=== PATIENT | male | born 1970 | race Caucasian/White ===

== ENCOUNTER 2021-03-19 12:32 | Outpatient (CLI) | payer MEDICARE, SELFPAY ==
--- NOTE | ~2021-03-19 | US_ITS ---
EXAMINATION: US venous doppler [facility] DATE: 03/19/2021 13:29 INDICATION: Lower limb pain. TECHNIQUE: Grayscale ultrasound images without and with compression and Doppler ultrasound images of the bilateral lower extremity veins were obtained. COMPARISON: None. FINDINGS: The visualized portions of right common femoral vein, profunda (deep) femoral vein, femoral vein, pop liteal vein, and greater saphenous vein outflow are patent. The calf veins are not well visualized. The visualized portions of left common femoral vein, profunda femoral vein, femoral vein, popliteal v ein, and greater saphenous vein outflow are patent. The calf veins are not well visualized. IMPRESSION: 1. No deep venous thrombosis. Reviewed, dictated and finalized at location A. OGRAPH I ENGRAVER
== END 2021-03-19 12:33 | disposition home or self-care (01) ==
PROVIDERS: PCP Emergency Medicine; Visit Provider Emergency Medicine
DX: M54.14 Radiculopathy, thoracic region (principal); M79.662 Pain in left lower leg
CPT/HCPCS: 93970

== ENCOUNTER 2021-04-02 08:29 | Outpatient (CLI) | payer MEDICARE, SELFPAY ==
--- NOTE | 2021-04-02 | ECHO_ITS ---
Patient Info Name: Kuldip Harkins Age: 50 years : 1970 Gender: Male Ht: 76 in Wt: 389 lbs BSA: 3.16 m2 HR: 92 bpm Technical Quality: Poor Exam Date: 04/02/2021 9:00 AM Exam Location: [facility] Pulmonary Patient Status: Outpatient Admit Date: 04/02/2021 Staff Ordering Physician: Bull Granados MD Sustainability Coordinator: Shanelle Aburto RDCS Attending Provider: Bull Granados MD Referring Physician: Darwin POPE; Exam Type: CA echo doppler color flow Study Info Indications R06.00 - Dyspnea, unspecified Complete two-dimensional, color flow and Doppler transthoracic echocardiogram is performed. Reason for Poor Study: patient body habitus Summary 1. Complete two-dimensional, color flow and Doppler transthoracic echocardiogram is performed. 2. Poor echocardiographic windows, cardiac chambers and valves are not well visualized. LV size appears to be normal, with normal global LV systolic function, ejection fraction about 60-70%. Grade 1 diastolic dysfunction. Valves are not well visualized. RVSP 24 mmHg. Consider contrast echo. Left Ventricle Left ventricular systolic function is normal, estimated at 65-70%. The left ventricular diastolic function is grade I diastolic dysfunction. Right Ventricle Right ventricular chamber dimension is normal. Right ventricular systolic function is normal. Left Atria Left atrial chamber dimension is normal. Right Atria Right atrial chamber dimension is normal. Aortic Valve The aortic valve is not well visualized. There is no aortic valve stenosis. Tricuspid Valve The tricuspid valve leaflets are not well visualized. Pericardium/Pleural The pericardium appears normal. Aorta The aortic root size at the sinus of Valsalva is normal. Left Ventricular Outflow Tract Name Value Normal LVOT 2D LVOT Diameter 2.2 cm LVOT Doppler LVOT Peak Gradient 6 mmHg LVOT Mean Gradient 3 mmHg LVOT VTI 23 cm LVOT VTI/AV VTI Ratio 1.0 LVOT Stroke Volume 89 ml LVOT CO 7.3 l/min LVOT CI 2.3 l/min/m2 Pulmonic Valve Name Value Normal RVOT Doppler RVOT Peak Gradient 2 mmHg PV Doppler PV Peak Gradient 3 mmHg Mitral Valve Name Value Normal MV Doppler MV Decel Hardin 431 cm/s2 MV PHT 41 ms MV Area (PHT)
== END 2021-04-02 08:30 | disposition home or self-care (01) ==
PROVIDERS: PCP Emergency Medicine; Visit Provider Emergency Medicine
DX: R06.00 Dyspnea, unspecified (principal)
CPT/HCPCS: 93306

== ENCOUNTER 2021-04-03 07:39 | Outpatient (CLI) | payer MEDICARE, SELFPAY ==
--- NOTE | ~2021-04-03 | MR_ITS ---
EXAMINATION: MR lumbar spine wo [facility] EXAM DATE: 04/03/2021 08:57 INDICATION: Lumbar pain. TECHNIQUE: Multi-sequential, multiplanar MR images of the lumbar spine were obtained without contrast . Sagittal T1, T2, T2 fat saturation images. Axial T2 weighted images. Comparison is made to prior examination from 04/25/2017. FINDINGS: There is 3 mm retrolisthesis L5 on S1 with moderate disc disease, mild at the other thoraco lumbar levels. Mild diffuse chronic loss of vertebral body heights. The conus medullaris terminates a t the L1/2 level and has normal signal intensity and morphology. There are no suspicious marrow signa l abnormalities. Paraspinal soft tissue is unremarkable. Level by level evaluation: T12-L1: Disc does not extend beyond the endplate margin. Facet arthropathy: Mild. Neural foraminal stenosis: No stenosis. Central canal stenosis: No stenosis. L1-L2: There is a mild diffuse disc bulge. Facet arthropathy: Mild. Neural foraminal stenosis: Mild left. Central canal stenosis: Minimal. L2-L3: There is a mild diffuse disc bulge. Facet arthropathy: Mild. Neural foraminal stenosis: Mild bilateral. Central canal stenosis: Minimal. L3-L4: There is a mild to moderate diffuse disc bulge. Facet arthropathy: Mild to moderate. Neural foraminal stenosis: Mild to moderate bilateral. Central canal stenosis: Mild. L4-L5: There is a moderate diffuse disc bulge. Facet arthropathy: Moderate. Neural foraminal stenosis: Moderate bilateral, right greater than left. Central canal stenosis: Mild to moderate. L5-S1: There is a moderate diffuse disc bulge. Facet arthropathy: Moderate. Neural foraminal stenosis: Moderate to severe bilateral. Central canal stenosis: Mild to moderate. Mild progression spondylosis compared to 2018. Amount of neural foraminal stenosis at L4-5 and L5-S1 does not appear significantly changed compared to that study. IMPRESSION: Lower lumbar predominant spondylosis. Reviewed, dictated and finalized at location B. TAMALE MAN
--- NOTE | ~2021-04-03 | XR_ITS ---
XR chest 2V DATE: 04/03/2021 08:07 INDICATION: Dyspnea TECHNIQUE: PA and lateral views COMPARISON: 06/07/2018 CT chest abdomen pelvis 01/18/2017 chest FINDINGS: Normal heart size. No hilar or mediastinal enlargement. No pulmonary infiltrate or consolidation, pleural effusion or pulmonary vascular congestion or pneumo thorax is detected. Included skeletal structures are unremarkable. IMPRESSION: No active cardiopulmonary disease Reviewed, dictated and finalized at location A. H CATCHER
== END 2021-04-03 07:40 | disposition home or self-care (01) ==
PROVIDERS: PCP Emergency Medicine; Visit Provider Physical Medicine & Rehabilitation
DX: R06.00 Dyspnea, unspecified (principal); M79.662 Pain in left lower leg; M47.815 Spondylosis without myelopathy or radiculopathy, thoracolumbar region; M48.05 Spinal stenosis, thoracolumbar region; M47.817 Spondylosis without myelopathy or radiculopathy, lumbosacral region; M48.07 Spinal stenosis, lumbosacral region
CPT/HCPCS: 71046; 72148

== ENCOUNTER 2022-08-26 11:37 | Outpatient (CLI) | payer MEDICARE, SELFPAY ==
--- NOTE | ~2022-08-26 | NM_ITS ---
EXAMINATION: NM hepatobiliary wo pharm DATE: 08/26/2022 14:03 INDICATION: Calculus of gallbladder without cholecystitis. COMPARISON: CT 06/07/2018 TECHNIQUE: 4.9 mCi Tc-99m mebrofenin (Choletec) was administered intravenously. Scintigraphic images of the abdomen were obtained for one hour. Then, the patient drank 8 oz Ensure, and imaging was cont inued for 60 minutes. FINDINGS: There is normal clearance of radiotracer from the blood pool. There is homogeneous tracer u ptake by the liver. Activity progresses to the bowel and gallbladder. Gallbladder ejection fraction (GBEF) was 7%. Note that with this technique, normal GBEF >= 33%. IMPRESSION: 1. Low gallbladder ejection fraction, consistent with gallbladder dysfunction and/or chronic cholecy stitis. Reviewed, dictated and finalized at location A. IMPRESSION: 1. Low gallbladder ejection fraction, consistent with gallbladder dysfunction and/or chronic cholecystitis.
== END 2022-08-26 11:38 | disposition home or self-care (01) ==
PROVIDERS: PCP Emergency Medicine; Visit Provider Emergency Medicine
DX: K80.20 Calculus of gallbladder without cholecystitis without obstruction (principal)
CPT/HCPCS: 78226; A9537

== ENCOUNTER 2022-09-17 06:20 | Day surgery (SDC) | payer MEDICARE, SELFPAY ==
[2022-09-15 08:27] VITALS: BMI 48.6
--- NOTE | 2022-09-15 08:34 | PC.NURSE ---
Report to the Outpatient Waiting Room, entrance under the green pavilion located off [facility], at time 9:00 on date 09/17/22. Planned Procedure Time: 11:00. Time changes happen often and if your time is changed the preop area will call you the afternoon before. - You and your visitor will be asked to self-screen and do not enter if you have any COVID symptoms. - A mask is optional within the hospital at this time. Patients may have clear liquids (water, carbonated beverages, clear teas, apple juice) until 3 hours prior to surgery (8:00) with a maximum of 20 ounces. - No food from midnight until time of surgery Take the following medications with a SIP of water the morning of surgery: NONE DO NOT STOP ANY OF YOUR OTHER PRESCRIPTION MEDICATIONS PRIOR TO SURGERY ?EXCEPT THE FOLLOWING Medications to discontinue per physician: N/A Date to take last dose: N/A Please no make-up, nail uzbek, hairspray, perfume, deodorant, or body powder the day of surgery. No jewelry (including any body piercings) or valuables the day of surgery, leave them at home. Please take a shower or bath the night before, or the morning of, surgery with an antibacterial soap (HIBICLENS). Wear comfortable, loose fitting clothing. - Jewelry must be removed prior to entering the operating room. Rings and piercings that are not removed may be cut off. - The hospital will not accept responsibility for valuables. - Please leave all valuables, including medications, at home the day of surgery. If you are going home after surgery, a licensed stud driver must drive you home. - NO public transportation without another adult if you receive anesthesia. - We recommend that an adult stay with you for 24 hours following discharge. - We also recommend that you do not drive, make important decision, drink alcoholic beverages, or take any drugs that were not prescribed by your health care provider for at least 24 hours after your discharge time. Follow any additional instructions given to you from your surgeon. If you or anyone in your household have experienced Covid symptoms in the past week, please notify your surgeon or the nurse liaison at the phone number below for possible testing. Telephone instructions given to PT - NICOLASA ELLINGTON and asked if any additional questions and then verbalized understanding. Patient advised to call surgeon office or pre surgery nurse liaison [phone] if any additional questions.
[2022-09-17] VITALS (22 sets, daily range): BP systolic 123–161; BP diastolic 62–95; PULSE 71–88; RESP 14–26; TEMP 36.2–37; O2SAT 87–98
--- NOTE | 2022-09-17 07:17 | ECG_ITS ---
Measurements Intervals [place] Rate: 81 P: -20 W[place]: 142 QRS: -29 QRSD: 100 T: 6 QT: 366 QTc: 426 Interpretive Statements SINUS RHYTHM POOR R WAVE PROGRESSION, ANTERIOR LEADS BASELINE ARTIFACT- I, III, V5-V6 BORDERLINE ECG NO PREVIOUS ECG AVAILABLE FOR COMPARISON Electronically Signed On 09-17-2022 11:01:38 CDT by Dawit Lopez D.O.
[2022-09-17] MEDS: ACETAMINOPHEN 500 MG TABLET 1000 MG PO (10:08)
[2022-09-17 10:16] LABS: Glucose Point of Care 180 mg/dl (65-105)
[2022-09-17] MEDS: LACTATED RINGERS 1,000 ML 30 ML IV CONT (10:19)
[2022-09-17] MEDS: KETOROLAC 15 MG/ML VIAL (*BKC) IV PUSH (10:20)
--- NOTE | 2022-09-17 10:25 | WPDANESEPPF ---
Anes - Initial Pre Proc Eval Procedure: Operation Date: 09/17/22 11:00 Proposed Procedures p Laparoscopic Cholecystectomy, Possible Open - Elian Perry DO <Cesar Leos DO - Last Filed: 10/07/22 13:08> Date/Time: 09/17/22 10:25 <Cesar Leos DO - Last Filed: 10/07/22 13:08> Surgeon: Elian Perry DO <Cesar Leos DO - Last Filed: 10/07/22 13:08> Pre Op Diagnosis: Sym Cholelithiasis <Cesar Leos DO - Last Filed: 10/07/22 13:08> Patient Data Age: 51 Gender: M Height: 1.93 m Weight: 197.2 kg <Cesar Leos DO - Last Filed: 10/07/22 13:08> Last Vital Signs Temp 37.0 C 09/17/22 09:34 Pulse 82 09/17/22 09:34 Resp 18 09/17/22 09:34 BP 146/91 H 09/17/22 09:34 Pulse Ox 95 09/17/22 09:34 O2 Del Method Room Air 09/17/22 09:34 <Cesar Leos DO - Last Filed: 10/07/22 13:08> Allergies Allergy/AdvReac Type Severity Reaction Status Date / Time No Known Allergies Allergy Unknown NONE Verified 09/17/22 09:38 <Cesar Leos DO - Last Filed: 10/07/22 13:08> Home Medications Medication Instructions Recorded Confirmed Type furosemide 40 mg tablet (Lasix) 40 mg PO QAM 09/12/22 09/17/22 History irbesartan 300 mg tablet 300 mg PO DAILY 09/12/22 09/17/22 History pramipexole 0.5 mg tablet (Mirapex) 0.5 mg PO QHS 09/12/22 09/17/22 History promethazine 12.5 mg tablet 12.5 mg PO QID PRN nausea and 09/12/22 09/17/22 Rx vomiting #10 tabs rosuvastatin 10 mg tablet (Crestor) 10 mg PO DAILY 09/12/22 09/17/22 History insulin lispro 100 unit/mL 1 sliding scale dose subcut 09/15/22 09/17/22 History subcutaneous pen USEASDIRECTD insulin regular hum U-500 conc 500 75 unit subcut TID 09/15/22 09/17/22 History unit/mL(3 mL) subcut pen (Humulin R U-500 (Conc) Insulin Kwikpen) hydrocodone 5 mg-acetaminophen 325 1 tablet PO Q4H PRN pain #10 tabs 09/18/22 Rx mg tablet <Cesar Leos DO - Last Filed: 10/07/22 13:08> Laboratory Tests 09/17/22 10:14 POC Capillary Glucose 180 H mg/dl (65-105) <Cesar Leos DO - Last Filed: 10/07/22 13:08> Patient hx anesthesia problems: none <Shaun Shahid MD - Last Filed: 09/17/22 11:18> Family hx anesthesia problems: none <Shaun Shahdi MD - Last Filed: 09/17/22 11:18> Results Review: All pre-operative results and documents have been reviewed as part of the pre-operative evaluation. <Cesar Leos DO - Last Filed: 10/07/22 13:08> [facility] Past Medical History Medical History: Medical History (Updated 09/18/22 @ 13:06 by Elian Perry DO) Anxiety Diabetes type 2, controlled Hyperlipidemia Hypertension <Cesar Leos DO - Last Filed: 10/07/22 13:08> Surgical History Surgical History: Surgical History (Updated 09/12/22 @ 09:39 by DIPIKA Salamanca) History of resection of small bowel Hx of spinal surgery <Cesar Leos DO - Last Filed: 10/07/22 13:08> Family History Family History: Family History (Updated 09/12/22 @ 09:39 by DIPIKA Salamanca) Other Breast cancer Diabetes mellitus <Cesar Leos DO - Last Filed: 10/07/22 13:08> Social History Social History: Social History (Updated 09/12/22 @ 09:42 by DIPIKA SalamancaAramis Smoking status: Never smoker Tobacco type: cigarettes Additional smoking assessment comments: SMOKED FOR 6 MONTHS A LONG TIME AGO Alcohol intake: never Substance use: never Substance use type: does not use Lack of Transportation: No Lack of Food: Often True Current Housing: I Have Housing Concerned About Future Housing: YES Difficulty Paying Gas/Electric Bills: YES Difficulty Paying for Meds: YES Currently Unemployed: No Education: Associate Degree Difficulty w/ Childcare or Family Care: No Living arrangements: alone [facility]
[2022-09-17 10:30] LABS: Basophils Absolute Auto 0.1 K/mm3 (0.0-0.1); Basophils Percent Auto 1.6 % (0.2-1.2); Eosinophils Absolute Auto 0.5 K/mm3 (0-0.3); Eosinophils Percent Auto 6.2 % (0-4.4); Hematocrit 46.7 % (42.0-52.0); Hemoglobin 14.8 g/dL (14.0-18.0); Immature Granulocyte Absolute 0.04 K/mm3 (0.00-0.031); Immature Granulocyte Percent A 0.5 % (0-0.5); Lymphocytes Absolute Auto 2.67 K/mm3 (0.9-3.2); Lymphocytes Percent Auto 35.8 % (18.3-44.2); Mean Corpuscular HGB Conc 31.7 g/dl (32-36); Mean Corpuscular Hemoglobin 28.5 pg (26-34); Monocytes Absolute Auto 0.6 K/mm3 (0.1-0.6); Monocytes Percent Auto 7.4 % (2.6-8.5); Neutrophils Absolute Auto 3.6 K/mm3 (1.3-6.7); Neutrophils Percent Auto 48.5 % (45.5-73.1); Platelet Count Result 298 k/mm3 (150-375); Red Blood Count 5.19 M/mm3 (4.6-6.20); Red Cell Distribution Width 14.2 % (11.5-14.5); White Blood Count 7.5 K/mm3 (4.5-10.0)
[2022-09-17 10:38] LABS: Alanine Aminotransferase 36 U/L (6-50); Albumin Level 4.2 g/dL (3.5-5.1); Alkaline Phosphatase 97 U/L (38-126); Amylase 56 U/L (30-110); Anion Gap 4 mmol/L (8-16); Aspartate Amino Transferase 30 U/L (17-59); Bilirubin,Total 0.7 mg/dL (0.2-1.3); Blood Urea Nitrogen 23 mg/dL (9-20); Carbon Dioxide 32 mmol/L (22-30); Chloride 102 mmol/L (98-107); Estimated CRCL calculation 199 ml/min; Estimated Glomerular Filt Rate > 60; Glucose 167 mg/dL (65-110); Lipase 54 U/L (23-300); Potassium 4.6 mmol/L (3.4-5.0); Sodium 138 mmol/L (137-145)
--- NOTE | 2022-09-17 10:48 | WPDHPUPDATE1 ---
History and Physical Update Update Date/Time: 09/17/22 10:48 History and Physical has been reviewed, including an updated exam of the patient. There are NO changes in the patient's condition. Risks, benefits, and alternatives have been discussed and questions answered. Patient agrees to proceed with procedure.
[2022-09-17] MEDS: ceFAZolin 3 GM/D5W 100 ML 100 ML IVPB (11:43)
--- NOTE | 2022-09-17 12:44 | W.PM.PROC2 ---
Procedure Note - Detailed Date of Procedure 09/17/22 Pre-op Diagnosis Symptomatic Cholelithiasis Post-op Diagnosis Same Procedure Performed Laparoscopic Cholecystectomy Surgeon Elian Perry, DO Anesthesia General and Local (0.5% bupivacaine) Indications This is a 51-year-old man who presented with right upper quadrant pain and nausea for the past 6 weeks. He had been experiencing frequent problems and was having difficulty eating. He had a prior CT which showed evidence of cholelithiasis. He then had a HIDA scan which showed evidence of a decreased gallbladder ejection fraction at 70%. Discussions were made with the patient about treatment options and decision was made to proceed with laparoscopic cholecystectomy, possible open. Findings Laparoscopic cholecystectomy was performed. The patient had some midline and left upper quadrant adhesions from his prior surgeries. The right side of his abdomen appeared relatively free of adhesions. I was able to carefully place the ports under direct visualization and avoid any of the areas where there were adhesions. The gallbladder appeared distended and contained multiple small stones. No other significant abnormalities were noted. The gallbladder was removed and sent to the lab for pathology. Description of Procedure Procedure as well as risks, benefits, and alternatives were discussed with patient. Written consent was obtained and placed in chart prior to procedure. The patient was brought back to surgical suite. Patient was placed in supine position on operating table. Time-out was done to confirm patient and procedure. Patient was then intubated by the anesthesia department. Abdomen was prepped and draped in sterile fashion using chlorhexidine prep. 0.5% bupivacaine with epinephrine was infiltrated at each site of incision. A 5 millimeter incision was made near the umbilicus, and a 5 millimeter Optiview trocar was advanced through the abdominal layers under direct visualization. Once inside the abdominal cavity, carbon dioxide was insufflated to create a pneumoperitoneum. The camera was inserted and the abdomen was inspected. No immediate abnormalities were identified. The patient was placed in reverse Trendelenburg position and rotated slightly to the left. An 11 millimeter incision was made in the subxiphoid region, and an 11 millimeter trocar was inserted under direct visualization. Two 5 millimeter incisions were made in the right upper quadrant, and two 5 millimeter trocars were inserted under direct visualization. The gallbladder was identified and grasped at the fundus and retracted superiorly. It was then grasped at the infundibulum retracted laterally. Careful dissection around the neck of the gallbladder was performed using blunt dissection with a [place] grasper and hook electrocautery. The cystic duct was identified, and a window was created behind it. The cystic artery was also identified and a window was created behind it. The critical view of safety was identified, visualizing the cystic duct running directly into the neck of the gallbladder, and the cystic artery running directly into the wall of the gallbladder. A 5 millimeter clip senior cyber security analyst was then used to place 2 clips proximally and 1 clip distally on both the cystic duct and cystic artery. They were then both transected using endoscopic scissors. Once safely away from the dax hepatitis, the gallbladder was dissected free from the liver bed using hook electrocautery. Hemostasis was achieved along the way. The gallbladder was removed completely and then removed through the subxiphoid port. The liver bed was then inspected. Hemostasis appeared adequate, and our clips appeared secure. The area was gently irrigated with sterile saline. No other abnormalities were seen. The patient was flattened out in bed, and 1 final inspection was made around the abdominal cavity. The subxiphoid port was removed, and a Howie Cavazos
[2022-09-17] MEDS: fentaNYL CITRATE INJ (*CRX) 100 MCG/2 ML VIAL 25 MCG IV PUSH ×8 (12:58→13:40)
[2022-09-17] MEDS: HYDROmorphone HCL INJ (*CRX) 1 MG/ML SYR 0.5 MG IV PUSH ×4 (13:49→17:41)
[2022-09-17 14:03] LABS: Glucose Point of Care 226 mg/dl (65-105)
[2022-09-17] MEDS: INSULIN HUMAN REGULAR (*BKC) 100 UNITS/ML IV PUSH (14:37)
--- NOTE | 2022-09-17 14:54 | SUR.PHASEI ---
pt initially wanted to go home and this nurse informed dr queen of that and dr queen said he would come to see pt at 5pm. This nurse spoke with the pt about the importance of staying over night to monitor his breathing and pt then understood and agreed to stay.
--- NOTE | 2022-09-17 15:01 | SUR.PHASEI ---
pt tolerated IV pain medicine well no O2 desats during narcotic pain medical technologist prn in PACU.
--- NOTE | 2022-09-17 15:20 | ADMGEN ---
This patient, Kuldip Harkins, was admitted to 3 [facility] Surg Room 319-01. Patient/family oriented to hospital policies and general routines including ID bracelet, bed and alarms, visiting hours, pain management, procedures, bathroom and other care routines, personal items, smoking policy, room service/diet, and visiting hours. Information on how to activate the Rapid Response Team has been discussed. Patient/Family are encouraged to report perceived risks to care and to ask questions if they do not understand what they are told or what they should do.
[2022-09-17] MEDS: HYDROcodone/acetaminophen (*CRX) 5-325 MG TABLET 2 TAB PO ×2 (15:40→21:06)
[2022-09-17 16:23] LABS: Glucose Point of Care 281 mg/dl (65-105)
[2022-09-17] MEDS: INSULIN ASPART (*BKC) 100 UNITS/ML SUB-Q ×2 (17:40→20:54)
[2022-09-17] MEDS: INSULIN HUMAN REGULAR (*BKC) 100 UNITS/ML 25 UNITS SUB-Q (17:41)
[2022-09-17] MEDS: ENOXAPARIN 30 MG/0.3 ML SYRINGE SUB-Q (20:40)
[2022-09-17] MEDS: PRAMIPEXOLE 0.5 MG TABLET PO (20:40)
[2022-09-17 21:53] LABS: Glucose Point of Care 212 mg/dl (65-105)
[2022-09-17] MEDS: HYDROmorphone HCL INJ (*CRX) 1 MG/ML SYR IV PUSH (23:37)
[2022-09-18 00:18] VITALS: BP 144/62; PULSE 71; RESP 18; TEMP 36.2; O2SAT 98
[2022-09-18] MEDS: HYDROcodone/acetaminophen (*CRX) 5-325 MG TABLET 2 TAB PO ×2 (03:22→08:28)
[2022-09-18 05:38] VITALS: BP 143/77; PULSE 77; RESP 18; TEMP 36.1; O2SAT 100
[2022-09-18] MEDS: HYDROmorphone HCL INJ (*CRX) 1 MG/ML SYR IV PUSH (05:51)
[2022-09-18 08:00] VITALS: O2SAT 96
[2022-09-18 08:03] LABS: Glucose Point of Care 228 mg/dl (65-105)
--- NOTE | 2022-09-18 08:23 | PM.DS ---
DS: Admitting Diagnosis Discharge Date 09/18/2022 Admitting Diagnosis Symptomatic cholelithiasis, morbid obesity, insulin-dependent type 2 diabetes, hypertension DS: Discharge Diagnosis Discharge Diagnosis (1) Symptomatic cholelithiasis: Code(s): K80.20 - Calculus of gallbladder without cholecystitis without obstruction Status: Acute (2) BMI 50.0-59.9, adult: Code(s): Z68.43 - Body mass index [BMI] 50.0-59.9, adult Status: Acute (3) Diabetes type 2, controlled: Qualifiers: Diabetes mellitus senior care insulin use: with senior care use Diabetes mellitus complication status: without complication Qualified Code(s): E11.9 - Type 2 diabetes mellitus without complications; Z79.4 - buttermaker (current) use of insulin Code(s): E11.9 - Type 2 diabetes mellitus without complications Status: Acute (4) Hypertension: Qualifiers: Hypertension type: primary hypertension Qualified Code(s): I10 - Essential (primary) hypertension Code(s): I10 - Essential (primary) hypertension Status: Acute DS: Summary Hospital Course Reason for hospitalization: Recovery after laparoscopic cholecystectomy Hospital Course: This is a 51-year-old man who presented for laparoscopic cholecystectomy on 09/17/2022. Patient was found to have symptomatic cholelithiasis on prior imaging. He is morbidly obese and has significant pulmonary issues with lying supine. Due to his risks of postoperative pulmonary complications and apnea related to anesthesia, decision was made to keep patient in the hospital overnight for outpatient extended recovery. He remained hemodynamically stable and pain was well controlled. He was able to advance his diet to a low-fat diet. On postop day 1 he was breathing well on room air. He was discharged on postop day 1. Status at Discharge Functional status at discharge: independent ambulation Overall status at discharge: patient is progressing back to baseline Time Spent with Patient Time attestation: Total time spent providing and/or coordinating discharge services: Time spent: Less than 30 minutes Exam Const: General: comfortable and no acute distress Orientation/consciousness: patient oriented x3 Resp: Effort & Inspection: normal respiratory effort Auscultation: clear to auscultation bilaterally Cardio: Rate: regular rate Rhythm: regular rhythm Heart sounds: S1 normal heart sound present and S2 normal heart sound present GI: Inspection: non-distended, incision (Intact with glue) and obesity GI Palp: Yes Soft to palpation, Yes Tenderness to palpation present (GI) (Incisional) and No Guarding due to palpation present (GI) Auscultation: normal bowel sounds DS: Data Data Completed and Pending Pending studies at discharge: Pending at discharge 09/17/22 12:23 Surgical [PTH] Routine Labs on day of discharge: Labs from last 24 hours 09/18/22 09/17/22 09/17/22 07:59 20:24 16:19 WBC RBC Hgb Hct MCV MCH MCHC RDW Plt Count MPV Immature Gran % (Auto) Neut % (Auto) Lymph % (Auto) [place] % (Auto) Eos % (Auto) Baso % (Auto) Lymph # (Auto) [place] # (Auto) Eos # (Auto) Baso # (Auto) Abs Immat Gran (auto) Absolute Neuts (auto) Absolute Nucleated RBC Nucleated RBC % Sodium Potassium Chloride Carbon Dioxide Anion Gap BUN Creatinine Estim Creat Clear Calc Estimated GFR Glucose POC Capillary Glucose 228 H 212 H 281 H Calcium Total Bilirubin Direct Bilirubin AST ALT Alkaline Phosphatase Total Protein Albumin Amylase Lipase Blood Type Antibody Screen 09/17/22 09/17/22 09/17/22 14:01 10:18 10:14 WBC 7.5 RBC 5.19 Hgb 14.8 Hct 46.7 MCV 90.0 MCH 28.5 MCHC 31.7 L RDW 14.2 Plt Count 298 MPV 11.0 H Immature Gran % (Auto) 0.5 Neut % (Auto) 48.5 Lymph % (A
[2022-09-18] MEDS: INSULIN ASPART (*BKC) 100 UNITS/ML SUB-Q (08:26)
[2022-09-18] MEDS: ENOXAPARIN 30 MG/0.3 ML SYRINGE SUB-Q (08:27)
[2022-09-18] MEDS: IRBESARTAN 150 MG TABLET 300 MG PO (08:27)
[2022-09-18] MEDS: ROSUVASTATIN 10 MG TABLET PO (08:27)
[2022-09-18] MEDS: FUROSEMIDE 40 MG TABLET PO (08:28)
[2022-09-18] MEDS: INSULIN HUMAN REGULAR (*BKC) 100 UNITS/ML 25 UNITS SUB-Q (08:30)
== END 2022-09-18 10:25 | disposition home or self-care (01) ==
LOC: ANHSURGERY 08:33 → ANH3MEDSUR 15:20
PROVIDERS: PCP Emergency Medicine; Visit Provider Surgery
PROC: 0FT44ZZ Resection of Gallbladder, Percutaneous Endoscopic Approach (ICD-10-PCS; CPT 47562; principal; 2022-09-17 11:00)
DX: K80.10 Calculus of gallbladder with chronic cholecystitis without obstruction (principal); I10 Essential (primary) hypertension; E78.5 Hyperlipidemia, unspecified; E11.9 Type 2 diabetes mellitus without complications; F41.9 Anxiety disorder, unspecified; Z79.4 Long term (current) use of insulin; E66.01 Morbid (severe) obesity due to excess calories; Z68.43 Body mass index [BMI] 50.0-59.9, adult
CPT/HCPCS: 47562; 36415; 80053; 82150; 82248; 82948; 83690; 85025; 86850; 86900; 86901; 88304; 93005; A9270; J0330; J0690; J1170; J1650; J1815; J1885; J2250; J2405; J2704; J3010; J7120